=== PATIENT | male | born 1980 | race Caucasian/White ===

== ENCOUNTER 2019-03-22 09:08 | Day surgery (SDC) | payer OTHER ==
[2019-03-22] MEDS ORDERED: PROPOFOL 10 MG/ML VIAL IV ONE (09:09)
[2019-03-22] MEDS ORDERED: FENTANYL PF 100MCG/2ML VIAL IV ONE (09:09)
[2019-03-22] MEDS ORDERED: LIDOCAINE 2% MDV (20MG/ML) 20ML VIAL IV ONE (09:09)
--- NOTE | 2019-03-23 15:41 | Operative Note ---
OPERATION: ESOPHAGOGASTRODUODENOSCOPY with photo. PREOPERATIVE DIAGNOSIS: Heartburn. POSTOPERATIVE DIAGNOSIS: LA grade C esophagitis. PROCEDURE: After informed consent was obtained from the patient, he was placed in the left lateral decubitus position in the endoscopy suite, sedated and monitored by the department of anesthesia. Once sedated, a well-lubricated JCH387 gastroscope was placed in the posterior oropharynx under direct visualization and passed to the proximal esophagus. The endoscope was advanced through the proximal, mid, and distal esophagus. There were erosions and superficial ulcers at the GE junction in 4 quadrants. There was irregularity of the squamocolumnar border and perhaps even a small hiatal hernia. The gastric body, antrum, pylorus, duodenal bulb, and sweep were unrevealing. J-turn views of the proximal stomach were unremarkable. The endoscope was straightened. The GE junction again inspected. No new findings or abnormalities identified. The endoscope removed from the patient with no new findings noted. RECOMMENDATIONS: I would suggest the patient take pantoprazole daily before breakfast and undergo repeat upper endoscopy in 8-10 weeks to assess healing. As always, thank you for allowing me to participate in the healthcare of your patients. SANNA
== END 2019-03-22 11:25 | disposition home or self-care (01) ==
LOC: HOP 09:08
PROVIDERS: ATTEND Internal Medicine Gastroenterology
DX: K21.9 Gastro-esophageal reflux disease without esophagitis (principal); R12 Heartburn; K20.9 Esophagitis, unspecified

== ENCOUNTER 2019-05-24 06:51 | Day surgery (SDC) | payer OTHER ==
[2019-05-24] MEDS ORDERED: PROPOFOL 10 MG/ML VIAL IV ONE (06:52)
[2019-05-24] MEDS ORDERED: LIDOCAINE 2% MDV (20MG/ML) 20ML VIAL IV ONE (06:52)
--- NOTE | 2019-05-25 12:41 | Operative Note ---
OPERATION: ESOPHAGOGASTRODUODENOSCOPY with biopsy. PREOPERATIVE DIAGNOSIS: Esophageal ulcer followup. POSTOPERATIVE DIAGNOSES: 1. LA grade B/C esophagitis. 2. Small hiatal hernia. PROCEDURE: After informed consent was obtained from the patient, he was placed in the left lateral decubitus position in the endoscopy suite, sedated and monitored by the department of anesthesia. A well-lubricated [id number] gastroscope was placed in the posterior oropharynx under direct visualization and passed to the proximal esophagus. The endoscope was advanced through the proximal, mid, and distal esophagus. The GE junction demonstrated erosions and ulcerations of LA grade B/C severity. There is a small hiatal hernia. The remainder of the esophagus, gastric body, antrum, pylorus, duodenal bulb and sweep were unremarkable. J-turn views of the proximal stomach revealed a small hiatal hernia. The endoscope was straightened. GE junction biopsies were obtained. The endoscope was removed from the patient with no new findings noted. RECOMMENDATIONS: The patient has intermittently been using [id number] pantoprazole. I would like him to use twice per day on a scheduled regular basis. In addition, when he has taken an evening dose, he has taken it before bedtime as opposed to before supper. I would like him to take his medications before his meals. I will repeat his upper endoscopy in 10 weeks to assess further healing. As always, thank you for allowing me to participate in the healthcare of your patients. SANNA
== END 2019-05-24 09:00 | disposition home or self-care (01) ==
LOC: HOP 06:51
PROVIDERS: ATTEND Internal Medicine Gastroenterology
DX: Z09 Encounter for follow-up examination after completed treatment for conditions other than malignant neoplasm (principal); K21.0 Gastro-esophageal reflux disease with esophagitis; K44.9 Diaphragmatic hernia without obstruction or gangrene